=== PATIENT | male | born 1990 | race Caucasian/White ===

== ENCOUNTER 2017-12-16 11:48 | Emergency (ER) | END 2017-12-16 14:13 | disposition home or self-care (01) ==

== ENCOUNTER 2018-05-01 16:07 | Emergency (ER) | END 2018-05-02 04:05 ==

== ENCOUNTER 2018-12-29 07:51 | Emergency (ER) | payer OTHER ==
[~2018-12-29] VITALS: Ht 182.9 cm; Wt 100.0 kg
[~2018-12-29 07:51] MED LIST: BUSP10TA2 PO; QUET200T PO; SERT-165 PO
[2018-12-29 08:10] VITALS: Ht 182.9 cm; Wt 100.0 kg
[2018-12-29] MEDS ORDERED: FLUMAZENIL 0.5 MG INJ IV ONE (10:00)
--- NOTE | 2018-12-29 10:15 | ERD ---
ER Documentation Chief Complaint Chief Complaint ems called due agitation HPI This is a 28-year-old male brought in by EMS for agitation. The patient was picked up at a friend's house. He said they were hanging out together on the couch watching TV but that the patient had done some drugs but we do not know what he took. He said he started getting agitated and pacing the room the became combative. When EMS arrived the patient was having extremely dilated pupils with agitation and combativeness. He was given 5 mg of Versed by EMS and he promptly went to sleep. ROS All systems reviewed and are negative except as per history of present illness. Medications Home Meds Reported Medications Sertraline Hcl* (Sertraline Hcl*) 100 Mg Tablet, 100 MG PO DAILY, #30 TAB 05/01/18 Quetiapine Fumarate* (Seroquel*) 200 Mg Tablet, 200 MG PO BID, #60 TAB TAKE 1/2 TAB-QAM AND 1 TAB-QHS 05/01/18 Buspirone Hcl* (Buspirone Hcl*) 10 Mg Tab, 10 MG PO BID, TAB 05/01/18 Allergies Allergies: Coded Allergies: No Known Allergy (Verified , 05/01/18) PMhx/Soc History of Surgery: No Anesthesia Reaction: No Hx Neurological Disorder: No Hx Respiratory Disorders: No Hx Cardiac Disorders: No Hx Psychiatric Problems: Yes (DEPRESSION) Hx Miscellaneous Medical Probl: No Hx Alcohol Use: No Hx Substance Use: Yes (MARIJUANA) Hx Tobacco Use: Yes Smoking Status: Former smoker FmHx Unable to obtain due to mental status Physical Exam Vitals Vital Signs Date Temp Pulse Resp B/P (MAP) Pulse Ox O2 O2 Flow FiO2 Time Delivery Rate 12/29/18 Nasal 2 08:33 Cannula 12/29/18 97.8 69 18 116/75 99 08:10 (89) Physical Exam Const: Well-developed, well-nourished, sedated with Versed but arousable to painful stimulation, airway is intact with a gag reflex Head: Atraumatic, normocephalic Eyes: Normal Conjunctiva, PERRLA, EOMI, normal sclera, no nystagmus, dilated pupils ENT: Normal External Ears, Nose and Mouth, moist mucus membranes. Neck: Full range of motion. No meningismus, no lymphadenopathy. Resp: Clear to auscultation bilaterally, no wheezing, rhonchi, rales Cardio: Regular rate and rhythm, no murmurs, S1 S2 present Abd: Soft, non tender x 4, non distended. Normal bowel sounds, no guarding or rebound, no pulsitile abdominal masses or bruits Skin: No petechiae or rashes, no ecchymosis , no maculopapular rash Back: No midline or flank tenderness Ext: No cyanosis, or edema, FROM x 4, normal inspection, neurovascularly intact x 4 Neur: Awake and alert, STR 5/5 x 4, sensation intact x 4, no focal findings, cerebellum intact Psych: Normal Mood and Affect Result Diagram: 12/29/18 0812 12/29/18 0812 Results 24 hrs Laboratory Tests Test 12/29/18 08:12 White Blood Count 6.0 10^3/ul Red Blood Count 4.59 10^6/ul Hemoglobin 13.8 g/dl Hematocrit 42.5 % Mean Corpuscular Volume 92.6 fl Mean Corpuscular Hemoglobin 30.1 pg Mean Corpuscular Hemoglobin Concent 32.5 g/dl Red Cell Distribution Width 12.6 % Platelet Count 231 10^3/UL Mean Platelet Volume 10.5 fl Immature Granulocytes % 0.500 % Neutrophils % 72.7 % Lymphocytes % 18.1 % Monocytes % 6.3 % Eosinophils % 1.7 % Basophils % 0.7 % Nucleated Red Blood Cells % 0.0 /100WBC Immature Granulocytes # 0.030 10^3/ul Neutrophils # 4.4 10^3/ul Lymphocytes # 1.1 10^3/ul Monocytes # 0.4 10^3/ul Eosinophils # 0.1 10^3/ul Basophils # 0.0 10^3/ul Nucleated Red Blood Cells # 0.0 10^3/ul Sodium Level 143 mmol/L Potassium Level 3.8 mmol/L Chloride Level 108 mmol/L Carbon Dioxide Level 24 mmol/L Anion Gap 11 Blood Urea Nitrogen 10 mg/dl Creatinine 0.84 mg/dl Est Glomerular Filtrat Rate mL/min > 60 mL/min Glucose Level 93 mg/dl Calcium Level 9.7 mg/dl Total Bilirubin 0.4 mg/dl Direct Bilirubin 0.00 mg/dl Indirect Bilirubin 0.4 mg/dl Aspartate Amino Transf (AST/SGOT) 24 IU/L Alanine Aminotransferase (ALT/SGPT) 22 IU/L Alkaline Phosphatase 48 IU/L Total Protein 7.6 g/dl Albumin 4.5 g/dl Globulin 3.10 g/dl Albumin/Globulin Ratio 1.45 Urine Opiates Screen Negative Urine Barbiturates Negative Urine Amphetamines Screen POSITIVE Urine Benzodiazepines Screen Positive Urine Cocaine Screen Negative Urine Cannabinoids Positive Ethyl Alcohol Level < 10.0 mg/dl Current Medications Medications Dose Sig/Paul Start Time Status Last (Trade) Ordered Route PRN Stop Time Admin Dose Reason Admin Flumazenil 0.3 mg ONCE ONCE 12/29/18 DC (Romazicon) IV 10:00 12/29/18 10:01 Procedures/[place] [id number] Radiology Main Line: [phone] DIAGNOSTIC IMAGING REPORT Patient: DILAN STUART : 1990 Age: 28 Sex: M MR #: [id number] DOS: 12/29/18 0801 Ordering MD: PERLITA GAMBOA DO Location: E/R Room/Bed: PROCEDURE: CT Brain without contrast. CLINICAL INDICATION: Altered mental status TECHNIQUE: CT scan of the brain was performed on a multidetector high- resolution CT scan. Axial imaging was obtained of the brain without contrast administration. Coronal and sagittal reformatted images were obtained from the axial source images. Standard CT scan of the head without contrast protocols were performed. The total exam CTDI equals 39.42 mGy and the total exam DLP equals 634.23 mGy- cm. One or more of the following dose reduction techniques were used: - Automated exposure control. - Adjustment of the mA and/or kV according to patient size. Use of iterative reconstruction technique. Dicom images are available COMPARISON: CT head without contrast 05/28/2018 FINDINGS: The ventricular system and peripheral CSF spaces are unremarkable. No evidence of intracranial masses hemorrhages or midline shift. The gtz-white matter differentiation is unremarkable. The bones of the calvarium are intact. The visualized paranasal sinuses and mastoids are unremarkable. IMPRESSION: 1. No evidence of intracranial masses hemorrhages or midline shift. 2. No significant interval change. RPTAT:AAJJ Maria E Dye Physician Date Time Electronically viewed and signed by Maria E Dye Physician on 12/29/2018 09:06 BM/ CC: PERLITA GAMBOA DO [id number] Patient has positive drug screen to 3 different drugs. The patient likely was on amphetamines for arrival. He is now sedated and in stable condition with stable vital signs. We will let these meds wear off and I will give a dose of flumazenil to reverse the Versed some. We will let him rest in the ER until he is awake alert oriented and coherent, will discharge once stable Departure Diagnosis: Primary Impression: Agitation Additional Impression: Substance abuse Condition: Stable PERLITA GAMBOA DO Dec 29, 2018 10:15
[2018-12-29] MEDS ORDERED: OLAN10TA7 PO (10:39)
[2018-12-29] MEDS ORDERED: ARIP5TAB14 PO (10:39)
[2018-12-29 12:25] VITALS: BP 130/78; PULSE 90; RESP 20
== END 2018-12-29 12:46 | disposition home or self-care (01) ==
LOC: E/R 07:51
DX: F19.10 Other psychoactive substance abuse, uncomplicated (principal); R41.82 Altered mental status, unspecified; Z87.891 Personal history of nicotine dependence
CPT/HCPCS: 70450; 80053; 80307; 85025; Z7610; 96374